=== PATIENT | female | born 1950 | race Caucasian/White ===

== ENCOUNTER 2018-07-28 08:47 | Inpatient (IN) | payer MEDICARE, MEDICAID ==
[2018-07-22 12:14] LABS: BASOPHILS % (AUTO) 0.6 % (0-1); EOSINOPHILS # (AUTO) 0.2 X10'3 (0-0.9); EOSINOPHILS % (AUTO) 3.1 % (0-6); LYMPHOCYTES # (AUTO) 1.8 X10'3 (1.1-4.8); LYMPHOCYTES % (AUTO) 31.5 % (21-51); MEAN CORPUSCULAR HEMOGLOBIN 28.3 PG (27.0-31.0); MEAN CORPUSCULAR HGB CONC 33.3 % (33.0-36.5); MEAN CORPUSCULAR VOLUME 84.9 FL (78-98); MEAN PLATELET VOLUME 7.7 FL (7.4-10.4); MONOCYTES # (AUTO) 0.4 X10'3 (0-0.9); MONOCYTES % (AUTO) 7.6 % (2-12); NEUTROPHILS # (AUTO) 3.3 X10'3 (1.8-7.7); NEUTROPHILS % (AUTO) 57.2 % (42-75); PRE OP HEMATOCRIT 32.5 % (35.0-45.0); PRE OP PLATELET COUNT 397 X10'3 (140-440); RED BLOOD COUNT 3.83 X10'6 (4.20-5.60); RED CELL DISTRIBUTION WIDTH 19.6 % (11.5-14.5)
[2018-07-22 12:15] LABS: CLARITY,URINE SLIGHTLY CLOUDY (Clear); COLOR,URINE YELLOW (Yellow); GLUCOSE, URINE NEGATIVE (Neg); KETONES,URINE NEGATIVE (Neg); LEUKOCYTE ESTERASE ,URINE NEGATIVE (Neg); NITRITES, URINE NEGATIVE (Neg); OCCULT BLOOD,URINE NEGATIVE (Neg); PROTEIN,URINE NEGATIVE (Neg); UROBILINOGEN,URINE 0.2 E.U/dL (0.2-1.0)
[2018-07-22 12:16] LABS: PRE OP HEMOGLOBIN 10.8 g/dL (12.0-16.0)
[2018-07-22 12:17] LABS: UA COLLECTION TYPE CLN CATCH MIDSTREAM
[2018-07-22 12:20] LABS: MUCUS STRANDS MODERATE /LPF (Neg); SQUAMOUS EPITHELIAL CELL,UR FEW /LPF (FEW)
[2018-07-22 12:21] LABS: BACTERIA,URINE FEW /HPF (Neg); HYALINE CASTS 0-3 /LPF (NEGATIVE); RBC,URINE 0-2 /HPF (0-2); WBC,URINE 0-4 /HPF (0-4)
[2018-07-22 12:22] LABS: PRE OP PROTIME 10.5 SECONDS (9.0-12.0)
[2018-07-22 12:26] LABS: ALBUMIN 3.7 G/DL (3.4-5.0); ALKALINE PHOSPHATASE 104 IU/L (46-116); BLOOD UREA NITROGEN 23 MG/DL (7-18); BUN/CREATININE RATIO 25.3 (6.6-38.0); CALCIUM 9.3 MG/DL (8.5-10.1); CHLORIDE 103 MMOL/L (99-107); CREATININE 0.91 MG/DL (0.40-0.90); PRE OP ALT 18 U/L (30-65); PRE OP ANION GAP 10 (8-16); PRE OP AST 16 U/L (10-37); PRE OP BILIRUB, TOTAL 0.5 MG/DL (0.0-1.0); PRE OP GLUCOSE 90 MG/DL (70-104); PRE OP SODIUM 139 MMOL/L (135-145); TOTAL CARBON DIOXIDE 26.3 MMOL/L (24-32); eGFR 61 ML/MIN
[2018-07-22 12:36] LABS: ALBUMIN/GLOBULIN RATIO 0.9 (1.1-1.5); HEMOGLOBIN A1C 5.2 % (4.5-6.2)
[2018-07-22 12:38] LABS: ANISOCYTOSIS 2+; PLATELET ESTIMATE NORMAL
[2018-07-22 12:44] LABS: PRE OP POTASSIUM 3.3 MMOL/L (3.4-5.1)
[2018-07-28] VITALS (21 sets, daily range): BP systolic 124–170; BP diastolic 50–87
[~2018-07-28] VITALS: Ht 167.6 cm; Wt 72.1 kg
[~2018-07-28 08:47] MED LIST: FERR325T28 PO; OMEP40CA37 PO; TRAM50TA2 PO; VANCOMYCIN INJ 1000 MG in NORMAL SALINE 250ml IV.SOLN IV ONE; cefazolin/dext.iso 2gm/100 ML IV ONE; famotidine 20mg tablet PO ONE; ringers solution, lacted 1,000 ML IV SCH; tranexamic acid inj. 700 MG in normal saline 100ml IV soln 93 ML IV ONE
[2018-07-28 10:05] LABS: ISTAT CREATININE 0.8 mg/dL (0.6-1.1); ISTAT HGB 13.3 g/dl (12.0-16.0); ISTAT IONIZED CALCIUM 1.24 mmol/L (1.03-1.32); ISTAT K 3.8 mmol/L (3.5-5.1); POC BUN/CREATININE RATIO 21.3 (6.6-38.0)
[2018-07-28] MEDS ORDERED: sevoflurane 250ml liquid IH ONE (12:30)
[2018-07-28] MEDS ORDERED: MIDAZolam 1mg/ml 10ml vial ONE (12:36)
[2018-07-28] MEDS ORDERED: fentaNYL/PF 50MCG/1 ML 2ML syringe ONE (12:37)
[2018-07-28] MEDS ORDERED: BUPIVAcaine/dex-water/PF 7.5 mg/ml 2ml ampul ONE (12:41)
[2018-07-28] MEDS ORDERED: vancomycin 1,000mg inj ONE (13:25)
[2018-07-28] MEDS ORDERED: ketorolac trometh. 30mg/ml inj. ONE (13:25)
[2018-07-28] MEDS ORDERED: ROPIVAcaine 0.5% (5mg/ml) 30ml vial ONE (13:25)
[2018-07-28] MEDS ORDERED: acetaminophen 325mg tablet PO PRN (15:35)
[2018-07-28] MEDS ORDERED: ondansetron/PF 4mg/2ml inj IV PRN ×2 (15:35→16:00)
[2018-07-28] MEDS ORDERED: bisacodyl 10mg suppository rectal RC PRN (15:35)
[2018-07-28] MEDS ORDERED: magnesium hydroxide 30ml (MOM) UD suspension PO PRN (15:35)
[2018-07-28] MEDS ORDERED: oxyCODONE IR 5mg (immed. release) tablet PO PRN (15:35)
[2018-07-28] MEDS ORDERED: diphenhydrAMINE 25mg capsule PO PRN ×2 (15:35)
[2018-07-28] MEDS ORDERED: traMADol 50MG tablet PO PRN (15:35)
[2018-07-28] MEDS ORDERED: HYDROmorphone 1 mg/ml syringe IV PRN ×2 (15:35)
[2018-07-28] MEDS ORDERED: ringers solution, lacted 1,000 ML IV SCH (15:56)
[2018-07-28] MEDS ORDERED: proCHLORperazine 10 MG/2 ml inj IV PRN (16:00)
[2018-07-28] MEDS ORDERED: meperidine/PF 25mg/ml syringe IV PRN ×3 (16:00)
[2018-07-28] MEDS ORDERED: ceFAZolin 1GM/D5W- ADD-VANTAGE 50 ML IV SCH ×2 (16:00→17:45)
[2018-07-28] MEDS ORDERED: morphine 4 MG/ML inj SYRINge IV PRN ×2 (16:00)
[2018-07-28] MEDS ORDERED: tranexamic acid inj. 720 MG in normal saline 100ml IV soln 100 ML IV ONE (18:30)
[2018-07-28] MEDS: potassium cl 20mEq in 1/2 NS 1,000 ML IV SCH ×2 (18:48→21:10)
[2018-07-28] MEDS: ceFAZolin 1GM/D5W- ADD-VANTAGE 50 ML IV SCH (18:48)
[2018-07-28] MEDS: ketorolac tromethamine 15mg/ml inj. IV SCH (19:53)
[2018-07-28] MEDS: oxyCODONE IR 5mg (immed. release) tablet PO PRN (19:53)
[2018-07-28] MEDS: acetaminophen 325mg tablet PO SCH (19:54)
[2018-07-28] MEDS ORDERED: vancomycin/NS 1 GM ADD-VANTAGE 250 ML IV SCH (20:00)
[2018-07-28] MEDS: gabapentin 300mg capsule PO SCH (20:01)
[2018-07-28] MEDS: sennosides 8.6mg tablet PO SCH (20:01)
[2018-07-29] MEDS: oxyCODONE IR 5mg (immed. release) tablet PO PRN ×4 (00:55→15:45)
[2018-07-29] MEDS: ketorolac tromethamine 15mg/ml inj. IV SCH ×3 (01:56→13:53)
[2018-07-29] MEDS: acetaminophen 325mg tablet PO SCH ×4 (01:56→20:03)
[2018-07-29] MEDS: ceFAZolin 1GM/D5W- ADD-VANTAGE 50 ML IV SCH (02:00)
[2018-07-29 05:00] VITALS: BP 131/62
[2018-07-29] MEDS: potassium cl 20mEq in 1/2 NS 1,000 ML IV SCH ×3 (05:36→23:31)
[2018-07-29 06:48] LABS: BASOPHILS % (AUTO) 0.1 % (0-1); EOSINOPHILS # (AUTO) 0.1 X10'3 (0-0.9); EOSINOPHILS % (AUTO) 1.1 % (0-6); HEMOGLOBIN 10.1 g/dl (12.0-16.0); LYMPHOCYTES # (AUTO) 1.3 X10'3 (1.1-4.8); LYMPHOCYTES % (AUTO) 14.2 % (21-51); MEAN CORPUSCULAR HEMOGLOBIN 28.4 PG (27.0-31.0); MEAN CORPUSCULAR HGB CONC 32.7 % (33.0-36.5); MEAN PLATELET VOLUME 8.1 FL (7.4-10.4); MONOCYTES # (AUTO) 0.7 X10'3 (0-0.9); MONOCYTES % (AUTO) 7.1 % (2-12); NEUTROPHILS # (AUTO) 7.2 X10'3 (1.8-7.7); NEUTROPHILS % (AUTO) 77.5 % (42-75); PLATELET COUNT 307 X10'3 (140-440); RED BLOOD COUNT 3.56 X10'6 (4.20-5.60); RED CELL DISTRIBUTION WIDTH 20.6 % (11.5-14.5); WHITE BLOOD COUNT 9.3 X10'3 (4.5-11.0)
[2018-07-29 07:02] LABS: ANION GAP 12 (8-16); CHLORIDE 107 MMOL/L (99-107); POTASSIUM 4.1 MMOL/L (3.5-5.1); SODIUM 140 MMOL/L (135-145); TOTAL CARBON DIOXIDE 21.3 MMOL/L (24-32)
[2018-07-29] MEDS: pantoprazole 40mg Tablet.DR PO SCH (08:34)
[2018-07-29] MEDS: ferrous sulfate 325mg tablet PO SCH (08:34)
[2018-07-29] MEDS: gabapentin 300mg capsule PO SCH ×3 (08:34→20:02)
[2018-07-29] MEDS: aspirin 325mg tablet PO SCH (08:35)
[2018-07-29 11:00] VITALS: BP 103/46
[2018-07-29 13:00] VITALS: BP 118/52
[2018-07-29 18:00] VITALS: BP 127/53
[2018-07-29] MEDS ORDERED: celeCOXIB 100mg capsule PO SCH (20:00)
[2018-07-29] MEDS: sennosides 8.6mg tablet PO SCH (20:02)
[2018-07-29] MEDS: celeCOXIB 100mg capsule PO SCH (20:02)
[2018-07-29 22:00] VITALS: BP 120/49
[2018-07-30] MEDS: oxyCODONE IR 5mg (immed. release) tablet PO PRN ×3 (01:15→11:36)
[2018-07-30] MEDS: acetaminophen 325mg tablet PO SCH ×2 (01:16→07:46)
[2018-07-30 06:00] VITALS: BP 122/59
[2018-07-30 06:24] LABS: HEMATOCRIT 27.5 % (35.0-45.0); HEMOGLOBIN 9.3 g/dl (12.0-16.0); MEAN CORPUSCULAR HEMOGLOBIN 29.4 PG (27.0-31.0); MEAN CORPUSCULAR HGB CONC 33.8 % (33.0-36.5); MEAN CORPUSCULAR VOLUME 87.1 FL (78-98); MEAN PLATELET VOLUME 8.4 FL (7.4-10.4); NEUTROPHILS % (AUTO) 62.1 % (42-75); PLATELET COUNT 251 X10'3 (140-440); RED BLOOD COUNT 3.16 X10'6 (4.20-5.60); RED CELL DISTRIBUTION WIDTH 19.6 % (11.5-14.5)
[2018-07-30 06:25] LABS: BASOPHILS % (AUTO) 0.5 % (0-1); EOSINOPHILS # (AUTO) 0.2 X10'3 (0-0.9); EOSINOPHILS % (AUTO) 2.2 % (0-6); LYMPHOCYTES # (AUTO) 1.6 X10'3 (1.1-4.8); LYMPHOCYTES % (AUTO) 23.5 % (21-51); MONOCYTES # (AUTO) 0.8 X10'3 (0-0.9); MONOCYTES % (AUTO) 11.7 % (2-12); NEUTROPHILS # (AUTO) 4.4 X10'3 (1.8-7.7)
[2018-07-30] MEDS ORDERED: ASPI-1 PO (06:38)
[2018-07-30] MEDS: celeCOXIB 100mg capsule PO SCH (07:45)
[2018-07-30] MEDS: gabapentin 300mg capsule PO SCH ×2 (07:45→12:38)
[2018-07-30] MEDS: pantoprazole 40mg Tablet.DR PO SCH (07:45)
[2018-07-30] MEDS: aspirin 325mg tablet PO SCH (07:46)
[2018-07-30] MEDS: ferrous sulfate 325mg tablet PO SCH (07:46)
[2018-07-30 10:00] VITALS: BP 126/52
[2018-07-30] MEDS ORDERED: acetaminophen 325mg tablet PO PRN (15:35)
== END 2018-07-30 13:11 | disposition home health service (06) | DRG 470 ==
LOC: PAS IN 08:47 → EDSTATUS 12:15 → ORTHO 4S 17:05
PROVIDERS: ADMIT Orthopaedic Surgery; ATTEND Orthopaedic Surgery
PROC: 8E0YXBZ Computer Assisted Procedure of Lower Extremity (ICD-10-PCS; 2018-07-28)
PROC: 8E0Y0CZ Robotic Assisted Procedure of Lower Extremity, Open Approach (ICD-10-PCS; 2018-07-28)
PROC: 3E0T3BZ Introduction of Anesthetic Agent into Peripheral Nerves and Plexi, Percutaneous Approach (ICD-10-PCS; 2018-07-28)
PROC: 0SRD0J9 Replacement of Left Knee Joint with Synthetic Substitute, Cemented, Open Approach (ICD-10-PCS; principal; 2018-07-28 12:30)
DX: M17.12 Unilateral primary osteoarthritis, left knee (principal); D62 Acute posthemorrhagic anemia; E11.9 Type 2 diabetes mellitus without complications; M21.162 Varus deformity, not elsewhere classified, left knee; M25.762 Osteophyte, left knee; K21.9 Gastro-esophageal reflux disease without esophagitis; Z79.899 Other long term (current) drug therapy; Z79.84 Long term (current) use of oral hypoglycemic drugs; Z90.49 Acquired absence of other specified parts of digestive tract
CPT/HCPCS: 36415; 73560; 80047; 80051; 80053; 81001; 82948; 83036; 85025; 85610; 85730; 87070; 97110; 97116; 97162; 97530; A4615; A6455; A7000; C1713; C1758; C1776; J0690; J1170; J1885; J2250; J2795; J3010; J3370; J3490; J7030; J7120